=== PATIENT | female | born 1950 | race Hispanic/Latino ===

== ENCOUNTER 2019-11-06 12:36 | Emergency (ER) | payer OTHER ==
[~2019-11-06] VITALS: Ht 149.9 cm; Wt 77.6 kg
[2019-11-06] MEDS ORDERED: TRAMADOL HCL 50 MG TAB PO ONE (13:30)
--- NOTE | 2019-11-06 14:49 | Diagnostic Imaging Report ---
EXAMINATION: PA and lateral views of the chest. COMPARISON: None CLINICAL HISTORY: Fall DISCUSSION: Lines/tubes: None. Lungs: The lungs are well inflated and clear. There is no evidence of pneumonia or pulmonary edema. Pleura: There is no pleural effusion or pneumothorax. Heart and mediastinum: The cardiomediastinal silhouette is normal. Bones and soft tissues: No acute bony abnormalities. Fracture of the right proximal humerus. IMPRESSION: No acute cardiopulmonary abnormalities. Signed by: Dr. Anshu Love M.D. on 11/06/2019 2:46 PM
--- NOTE | 2019-11-06 14:54 | Diagnostic Imaging Report ---
INDICATION: Right hand pain after fall. COMPARISON: None. TECHNIQUE: Right hand radiograph 3 views. FINDINGS / IMPRESSION: No fracture or malalignment is demonstrated. No degenerative changes. Subcutaneous edema of the dorsal wrist noted. Signed by: Horace Hutchison MD on 11/06/2019 2:52 PM
--- NOTE | 2019-11-06 14:56 | Diagnostic Imaging Report ---
INDICATION: Right shoulder pain after fall. COMPARISON: None. TECHNIQUE: Right shoulder radiograph 2 views, internal rotation AP view and external rotation AP view. FINDINGS / IMPRESSION: There is a fracture of the right humeral neck, mildly displaced and more so angulated. There appear to be 3 fracture fragments, though evaluation limited given only 2 AP views. Signed by: Horace Hutchison MD on 11/06/2019 2:54 PM
== END 2019-11-06 15:40 | disposition home or self-care (01) ==
LOC: ER 12:36
DX: S42.301A Unspecified fracture of shaft of humerus, right arm, initial encounter for closed fracture (principal); S60.211A Contusion of right wrist, initial encounter; W07.XXXA Fall from chair, initial encounter; Y92.008 Other place in unspecified non-institutional (private) residence as the place of occurrence of the external cause; I10 Essential (primary) hypertension; E11.9 Type 2 diabetes mellitus without complications; E78.5 Hyperlipidemia, unspecified
CPT/HCPCS: 71046; 99283